=== PATIENT | male | born 1960 | race Caucasian/White ===

== ENCOUNTER 2019-08-11 13:13 | Observation (INO) | payer BC ==
[2019-08-11] MEDS ORDERED: MORPHINE 4 MG/ML SYR ONE (13:52)
[2019-08-11] MEDS ORDERED: ONDANSETRON 4 MG/2 ML VIAL ONE (13:53)
[2019-08-11] MEDS ORDERED: NA CHLORIDE 0.9% 1,000 ML ONE (13:53)
[2019-08-11 14:18] LABS: Absolute Lymphocytes (CBC) 1.3 K/uL (0.7-4.9); Basophils % 0.3 % (0-1.3); Hematocrit 46.2 % (39.6-49.0); MPV 8.5 fL (7.6-11.3); RBC Red Blood Cell Count 5.11 M/uL (4.33-5.43)
[2019-08-11 14:35] LABS: Albumin 3.8 g/dL (3.4-5.0); Bilirubin Direct 0.1 mg/dL (0-0.2); Bilirubin Total 0.7 mg/dL (0.2-1.0); Potassium 3.8 mmol/L (3.5-5.1); Protein, Total 6.9 g/dL (6.4-8.2)
--- NOTE | 2019-08-11 15:14 | RAD REPORT ---
EXAM DESCRIPTION: CT - Abdomen Pelvis W Contrast - 08/11/2019 3:02 pm CLINICAL HISTORY: Abdominal pain COMPARISON: 2016 TECHNIQUE: Computed axial tomography of the abdomen pelvis was obtained. 100 cc Isovue-300 was admin istered intravenously. Oral contrast was not requested which limits evaluation of bowel. All CT scans are performed using dose optimization technique as appropriate and may include automated exposure control or mA/KV adjustment according to patient size. FINDINGS: Calcified granuloma left lower lobe Fatty liver. 22 millimeter hepatic cyst Spleen, adrenal and kidneys appear unremarkable. Mild stranding adjacent to pancreatic head. Pancreas is normal size. Mild inhomogeneity pancreatic he ad. No pseudocyst There is no evidence of diverticulitis. Normal appendix IMPRESSION: Mild pancreatitis
[2019-08-11 15:24] LABS: Urine Blood NEGATIVE (NEG); Urine Glucose NEGATIVE (NEG); Urine Protein NEGATIVE (NEG)
--- NOTE | 2019-08-11 16:34 | ER ---
Nurse's Notes [facility] Name: Garland Maier Age: 59 yrs Sex: Male : 1960 Arrival Date: 08/11/2019 Time: 13:16 Bed 14 Private MD: Ramana Caldwell Diagnosis: Abdominal and pelvic pain;Acute pancreatitis Presentation: 08/11 13:20 Presenting complaint: Patient states: epigastric pain started a couple of days ago and sv then started having bilateral rib pain, generalized weakness, headache. Reports drinking on Wed and the pain started the next day, hx pancreatitis. Transition of care: patient was not received from another setting of care. Onset of symptoms was July 2019. Risk Assessment: Do you want to hurt yourself or someone else? Patient reports no desire to harm self or others. Care prior to arrival: None. 13:20 Method Of Arrival: Ambulatory sv 13:20 Acuity: MARYAM 3 sv 19:05 Initial Sepsis Screen: Does the patient meet any 2 criteria? No. Patient's initial sepsis screen is negative. Does the patient have a suspected source of infection? Yes: Acute abdominal pain. Triage Assessment: 19:05 General: Appears in no apparent distress. Behavior is calm, cooperative, appropriate wh for age. Historical: - Allergies: 13:21 No Known Allergies; sv - PMHx: 13:21 Hypertension; Pancreatitis; sv - PSHx: 13:21 None; sv - Immunization history:: Adult Immunizations up to date, Flu vaccine is not up to date. - Social history:: Smoking status: Patient/guardian denies using tobacco, Patient uses alcohol, occasionally. - Ebola Screening: : No symptoms or risks identified at this time. Screenin:00 Abuse screen: Denies threats or abuse. Denies injuries from another. Nutritional ch screening: No deficits noted. Tuberculosis screening: No symptoms or risk factors identified. Fall Risk None identified. Assessment: 14:00 Pain: Complains of pain in right upper quadrant, left upper quadrant and abdomen ch diffusely Pain currently is 5 out of 10 on a pain scale. Neuro: No deficits noted. Cardiovascular: No deficits noted. Respiratory: Airway is patent Respiratory effort is even, unlabored, Breath sounds are clear bilaterally. GI: Bowel sounds present X 4 quads. Abd is soft X 4 quads Abdomen is tender to palpation in right upper quadrant and left upper quadrant. Derm: Skin is intact, Skin is pink, warm \T\ dry. Musculoskeletal: No signs and/or symptoms reported regarding the musculoskeletal system. 14:48 Reassessment: Patient appears in no apparent distress at this time. Patient and/or ch family updated on plan of care and expected duration. Pain level reassessed. Patient is alert, oriented x 3, equal unlabored respirations, skin warm/dry/pink. Patient states feeling better. Patient states symptoms have improved. 16:00 Reassessment: Patient appears in no apparent distress at this time. No changes from ch previously documented assessment. Patient and/or family updated on plan of care and expected duration. Pain level reassessed. Patient is alert, oriented x 3, equal unlabored respirations, skin warm/dry/pink. 17:00 Reassessment: Patient appears in no apparent distress at this time. No changes from ch previously documented assessment. Patient and/or family updated on plan of care and expected duration. Pain level reassessed. Patient is alert, oriented x 3, equal unlabored respirations, skin warm/dry/pink. 18:00 Reassessment: pt verb understanding of wait to go upstairs. no s/s of distress. ch 19:13 Reassessment: Patient appears in no apparent distress at this time. Patient and/or ch family updated on plan of care and expected duration. Pain level reassessed. Patient is alert, oriented x 3, equal unlabored respirations, skin warm/dry/pink. Patient states feeling better. Patient states symptoms have improved. Vital Signs: 13:21 BP 146 / 89; Pulse 84; Resp 16; Pulse Ox 98% ; Weight 90.72 kg; Height 5 ft. 11 in. sv (180.34 cm); Pain 8/10; 14:48 BP 136 / 77; Pulse 62; Resp 14; Temp 99.1(O); Pulse Ox 96% on R/A; Pain 0/10; ch 16:00 BP 135 / 88; Pulse 80; Resp 18; Temp 99.1; Pulse Ox 98% on R/A; Pain 7/10; ch 18:53 BP 150 / 80; Pulse 76; Resp 14; Temp 98.5; Pulse Ox 97% on R/A; Pain 6/10; ch 13:21 Body Mass Index 27.89 (90.72 kg, 180.34 cm) sv ED Course: 13:16 Patient arrived in ED. ag5 13:16 Ramana Caldwell DO is Private Physician. ag5 13:20 Triage completed. sv 13:22 Donte Baltazar MD is Attending Physician. kdr 13:22 Arm band placed on. sv 13:50 Dea Simms, RN is Primary Nurse. ch 14:00 Patient has correct armband on for positive identification. Placed in gown. Bed in low ch position. Call light in reach. Side rails up X 1. Pulse ox on. NIBP on. Door closed. Noise minimized. Lights dimmed. Warm blanket given. 14:00 No provider procedures requiring assistance completed. ch 14:12 Basic Metabolic Panel Sent. ch 14:12 CBC with Diff Sent. ch 14:13 Creatinine for Radiology Sent. ch 14:13 Hepatic Function Sent. ch 14:13 Lipase Sent. ch 14:20 No apparent distress. Resting quietly. ch 14:20 Inserted saline lock: 20 gauge in left forearm, using aseptic technique. ch 15:00 Urine collected: clean catch specimen, clear, taisha colored. jp3 15:02 CT Abd/Pelvis - IV Contrast Only In Process Unspecified. EDMS 15:02 CT completed. Patient tolerated procedure well. Patient moved to CT via wheelchair. nj Patient moved back from CT. 16:32 Brian Leslie DO is Hospitalizing Provider. kdr 19:14 Report given to Judy. ch 19:41 Patient admitted, IV remains in place. wh Administered Medications: 14:12 Drug: NS 0.9% 1000 ml Route: IV; Rate: 1 bolus; Site: left forearm; ch 15:13 Follow up: IV Status: Completed infusion; IV Intake: 1000ml ch 14:12 Drug: morphine 4 mg Route: IVP; Site: left forearm; ch 15:13 Follow up: Response: No adverse reaction; Marked relief of symptoms ch 14:12 Drug: Zofran 4 mg Route: IVP; Site: left forearm; ch 15:13 Follow up: Response: No adverse reaction ch 18:16 Drug: morphine 2 mg Route: IVP; Site: left forearm; ch 18:16 Follow up: Response: No adverse reaction ch 19:40 Follow up: Response: No adverse reaction; Pain is decreased; RASS: Alert and Calm (0) Intake: 15:13 IV: 1000ml; Total: 1000ml. Outcome: 16:33 Decision to Hospitalize by Provider. kdr 19:40 Admitted to Tele accompanied by nurse, family with patient, via wheelchair, room 404, with chart, Report called to Jen Rizo RN 19:40 Condition: stable 19:40 Instructed on the need for admit. 19:41 Patient left the ED. Signatures: Dispatcher [employer] EDDea Mccracken RN RN ch Verde, Stephanie, RN RN Donte Baltazar MD MD kdr Jordan, Nathan nj Habalo, Winsy Osbaldo George jp3 Brittany George ag5 Corrections: (The following items were deleted from the chart) 13:22 13:20 Presenting complaint: Patient states: epigastric pain started a couple of days sv ago and then started having bilateral rib pain, generalized weakness, headache. sv
--- NOTE | 2019-08-11 16:34 | EDPHYS ---
Physician Documentation [facility] Name: Garland Maier Age: 59 yrs Sex: Male : 1960 Arrival Date: 08/11/2019 Time: 13:16 Bed 14 Private MD: Ramana Caldwell ED Physician Donte Baltazar HPI: 08/11 17:10 This 59 yrs old Male presents to ER via Ambulatory with complaints of kdr Abdominal Pain. 17:10 The patient presents with abdominal pain in the epigastric area, in the upper abdomen. kdr Onset: The symptoms/episode began/occurred gradually, 3 day(s) ago. The symptoms do not radiate. Associated signs and symptoms: Pertinent positives: nausea and vomiting, Pertinent negatives: anorexia, blood in stools, chest pain, diarrhea, dysuria, fever, headache, hematuria, palpitations, shortness of breath, testicular pain, vomiting, vomiting blood. The symptoms are described as achy, crampy, waxing/waning. Modifying factors: The symptoms are alleviated by nothing, the symptoms are aggravated by coughing, breathing deeply, movement, pressure, touching the area. Severity of pain: At its worst the pain was severe incapacitating just prior to arrival, in the emergency department the pain is unchanged. The patient has experienced similar episodes in the past, a few times. The patient has not recently seen a physician, Was admitted for pancreatitis last ED visit. Historical: - Allergies: 13:21 No Known Allergies; sv - PMHx: 13:21 Hypertension; Pancreatitis; sv - PSHx: 13:21 None; sv - Immunization history:: Adult Immunizations up to date, Flu vaccine is not up to date. - Social history:: Smoking status: Patient/guardian denies using tobacco, Patient uses alcohol, occasionally. - Ebola Screening: : No symptoms or risks identified at this time. ROS: 17:10 Constitutional: Negative for fever, chills, and weight loss, Eyes: Negative for injury, kdr pain, redness, and discharge, ENT: Negative for injury, pain, and discharge, Neck: Negative for injury, pain, and swelling, Cardiovascular: Negative for chest pain, palpitations, and edema, Respiratory: Negative for shortness of breath, cough, wheezing, and pleuritic chest pain, Back: Negative for injury and pain, : Negative for injury, bleeding, discharge, and swelling, MS/Extremity: Negative for injury and deformity, Skin: Negative for injury, rash, and discoloration, Neuro: Negative for headache, weakness, numbness, tingling, and seizure activity. Psych: Negative for depression, anxiety, suicide ideation, homicidal ideation, and hallucinations, Allergy/Immunology: Negative for hives, rash, and allergies, Endocrine: Negative for neck swelling, polydipsia, polyuria, polyphagia, and marked weight changes, Hematologic/Lymphatic: Negative for swollen nodes, abnormal bleeding, and unusual bruising. 17:10 Abdomen/GI: Positive for abdominal pain, nausea and vomiting, Negative for diarrhea, constipation, abdominal distension, anorexia, dysphagia, hematemesis, black/tarry stool, rectal pain, rectal bleeding, bowel incontinence. Exam: 17:10 Constitutional: This is a well developed, well nourished patient who is awake, alert, kdr and in no acute distress. Head/Face: Normocephalic, atraumatic. Eyes: Pupils equal round and reactive to light, extra-ocular motions intact. Lids and lashes normal. Conjunctiva and sclera are non-icteric and not injected. Cornea within normal limits. Periorbital areas with no swelling, redness, or edema. Neck: Trachea midline, no thyromegaly or masses palpated, and no cervical lymphadenopathy. Supple, full range of motion without nuchal rigidity, or vertebral point tenderness. No Meningismus. Chest/axilla: Normal chest wall appearance and motion. Nontender with no deformity. No lesions are appreciated. Cardiovascular: Regular rate and rhythm with a normal S1 and S2. No gallops, murmurs, or rubs. Normal PMI, no JVD. No pulse deficits. Respiratory: Lungs have equal breath sounds bilaterally, clear to auscultation and percussion. No rales, rhonchi or wheezes noted. No increased work of breathing, no retractions or nasal flaring. Back: No spinal tenderness. No costovertebral tenderness. Full range of motion. Skin: Warm, dry with normal turgor. Normal color with no rashes, no lesions, and no evidence of cellulitis. MS/ Extremity: Pulses equal, no cyanosis. Neurovascular intact. Full, normal range of motion. Neuro: Awake and alert, GCS 15, oriented to person, place, time, and situation. Cranial nerves II-XII grossly intact. Motor strength 5/5 in all extremities. Sensory grossly intact. Cerebellar exam normal. Normal gait. Psych: Awake, alert, with orientation to person, place and time. Behavior, mood, and affect are within normal limits. 17:10 Abdomen/GI: Inspection: abdomen appears normal, Bowel sounds: active, diminished, in all quadrants, Palpation: soft, mild abdominal tenderness, in the epigastric area, right upper quadrant and left upper quadrant, mass, is not appreciated, rebound tenderness, is not appreciated. Vital Signs: 13:21 BP 146 / 89; Pulse 84; Resp 16; Pulse Ox 98% ; Weight 90.72 kg; Height 5 ft. 11 in. sv (180.34 cm); Pain 8/10; 14:48 BP 136 / 77; Pulse 62; Resp 14; Temp 99.1(O); Pulse Ox 96% on R/A; Pain 0/10; ch 16:00 BP 135 / 88; Pulse 80; Resp 18; Temp 99.1; Pulse Ox 98% on R/A; Pain 7/10; ch 18:53 BP 150 / 80; Pulse 76; Resp 14; Temp 98.5; Pulse Ox 97% on R/A; Pain 6/10; ch 13:21 Body Mass Index 27.89 (90.72 kg, 180.34 cm) sv MDM: 16:33 Patient medically screened. kdr 17:10 Data reviewed: vital signs, nurses notes, lab test result(s), radiologic studies. kdr Counseling: I had a detailed discussion with the patient and/or guardian regarding: the historical points, exam findings, and any diagnostic results supporting the discharge/admit diagnosis, lab results, radiology results. 08/11 13:56 Order name: Basic Metabolic Panel; Complete Time: 14:56 kdr 08/11 13:56 Order name: CBC with Diff; Complete Time: 14:56 kdr 08/11 13:56 Order name: Creatinine for Radiology; Complete Time: 14:56 kdr 08/11 13:56 Order name: Hepatic Function; Complete Time: 14:56 kdr 08/11 13:56 Order name: Lipase; Complete Time: 14:56 kdr 08/11 15:11 Order name: Urine Dipstick--Ancillary (enter results); Complete Time: 15:36 eb 08/11 13:56 Order name: IV Saline Lock; Complete Time: 14:13 [facility] 08/11 13:56 Order name: Labs collected and sent; Complete Time: 14:13 [facility] 08/11 13:56 Order name: CT Abd/Pelvis - IV Contrast Only; Complete Time: 15:36 [facility] 08/11 16:53 Order name: Triglycerides Level EDMS Administered Medications: 14:12 Drug: NS 0.9% 1000 ml Route: IV; Rate: 1 bolus; Site: left forearm; ch 15:13 Follow up: IV Status: Completed infusion; IV Intake: 1000ml ch 14:12 Drug: morphine 4 mg Route: IVP; Site: left forearm; ch 15:13 Follow up: Response: No adverse reaction; Marked relief of symptoms ch 14:12 Drug: Zofran 4 mg Route: IVP; Site: left forearm; ch 15:13 Follow up: Response: No adverse reaction ch 18:16 Drug: morphine 2 mg Route: IVP; Site: left forearm; ch 18:16 Follow up: Response: No adverse reaction ch 19:40 Follow up: Response: No adverse reaction; Pain is decreased; RASS: Alert and Calm (0) Disposition: 08/11/19 16:33 Hospitalization ordered by Brian Leslie for Observation. Preliminary diagnosis are Abdominal and pelvic pain, Acute pancreatitis. - Bed requested for Telemetry/MedSurg (observation). - Status is Observation. - Condition is Fair. - Problem is an acute exacerbation. - Symptoms have improved. UTI on Admission? No Signatures: Dispatcher [employer] EDMS Dea Simms RN RN Aury Bains RN RN Donte Baltazar MD MD [facility] Anthony Mcduffie Alena Miller Corrections: (The following items were deleted from the chart) 17:48 16:33 Hospitalization Ordered by Brian Leslie DO for Observation. Preliminary diagnosis is Abdominal and pelvic pain; Acute pancreatitis. Bed requested for Telemetry/MedSurg (observation). Status is Observation. Condition is Fair. Problem is an acute exacerbation. Symptoms have improved. UTI on Admission? No. kdr 19:41 17:48 08/11/2019 16:33 Hospitalization Ordered by Brian Leslie DO for Observation. Preliminary diagnosis is Abdominal and pelvic pain; Acute pancreatitis. Bed requested for Telemetry/MedSurg (observation). Status is Observation. Condition is Fair. Problem is an acute exacerbation. Symptoms have improved. UTI on Admission? No. eb
--- NOTE | 2019-08-11 17:15 | P.HP ---
Certification for Inpatient Patient admitted to: Observation With expected LOS: <2 Midnights Patient will require the following post-hospital care: None Practitioner: I am a practitioner with admitting privileges, knowledge of patient current condition, hospital course, and medical plan of care. Services: Services provided to patient in accordance with Admission requirements found in Title 42 Section 412.3 of the Code of Federal Regulations Patient History Date of Service: 08/11/19 Primary Care Provider: Dr. Ramana Caldwell Reason for admission: abdominal pain History of Present Illness: 59-year-old male presented to the emergency room with epigastric abdominal pain. Patient with history of hypertension and pancreatitis. Patient reported abdominal pain mainly to the upper quadrant starting yesterday. Pain persisted and got worse today. He rated the pain about a 10/10. Pain would only radiate to the upper abdomen. He denied any fever, chills. No significant nausea noted with his history of pancreatitis he came to the ER for further evaluation. Patient denied increase alcohol intake. present reports patient has a poor diet. In the ER patient evaluated. White count 14.0. Hemoglobin 15.8. Platelet count 213. Sodium 141, potassium 3.8. GFR of 86. Glucose 126. Total bilirubin/ AST/ALT unremarkable. Urinalysis unremarkable. Lipase 242. CT revealed mild pancreatitis. CT also showed a 22 mm hepatic cyst and fatty liver. Patient required multiple doses of pain medication. Patient was admitted for further evaluation. When I saw the patient ER, pain improved with medication. at bedside. Patient denied excessive alcohol use. Patient with prior episode of pancreatitis about 2 years ago. At that time an MRCP was negative. Etiology at that time was likely related to alcohol verses diet. Patient is not followed up with GI since that time. Patient has hypertension and only takes lisinopril. Allergies No Known Allergies Allergy (Unverified 06/18/16 15:56) Home medications list reviewed: Yes Home Medications: Lisinopril [Prinivil*] 10 mg PO DAILY #30 tab 10/18/17 Pantoprazole [Protonix Tab*] 40 mg PO DAILYAC #30 tab 10/18/17 traMADol HCL [Ultram*] 50 mg PO Q6H PRN #20 tab 10/18/17 - Past Medical/Surgical History Diabetic: No -: Hypertension -: GERD -: 22 mm hepatic cyst -: Fatty liver Past Surgical History: Patient denies surgical history Psychosocial/ Personal History: Patient is - Family History Father -: Cancer (Lymphoma) Notes: lymphoma Mother -: Lung disease, Cancer (Lung and brain cancer) Brother -: Cancer (Prostate cancer) - Social History Smoking Status: Never smoker Alcohol use: Yes CD- Drugs: No Caffeine use: No Place of Residence: Home Review of Systems General: As per HPI Eyes: Unremarkable ENT: Unremarkable Respiratory: Unremarkable Cardiovascular: Unremarkable Gastrointestinal: Nausea, Abdominal Pain, As per HPI Genitourinary: Unremarkable Musculoskeletal: Unremarkable Integumentary: Unremarkable Neurological: Unremarkable Lymphatics: Unremarkable Physical Examination - Physical Exam General: Alert, In no apparent distress, Oriented x3, Cooperative HEENT: Atraumatic, Normocephalic, PERRLA, Other (Dry mucous membranes) Neck: Supple, No Thyromegaly Respiratory: Clear to auscultation bilaterally, Normal air movement Cardiovascular: Normal pulses, Regular rate/rhythm Gastrointestinal: Normal bowel sounds, Soft and benign, Non-distended, No masses , No rebound, No guarding, Tenderness (Pain to the upper quadrant) Musculoskeletal: No erythema, No tenderness, No warmth Integumentary: No tenderness/swelling, No erythema, No warmth, No cyanosis Neurological: Normal speech, Normal strength at 5/5 x4 extr, Normal tone, Normal affect - Studies Laboratory Data (last 24 hrs) 08/11/19 14:00: Creatinine 0.90 08/11/19 14:00: WBC 14.3 H, Hgb 15.8, Hct 46.2, Plt Count 213 08/11/19 14:00: Sodium 141, Potassium 3.8, BUN 10, Creatinine 0.90, Glucose 126 H, Total Bilirubin 0.7, AST 10 L, ALT 23, Alkaline Phosphatase 30 L, Lipase 242 Assessment and Plan - Plan Impression: Upper abdominal pain secondary to recurrent idiopathic pancreatitis Hypertension Fatty liver Hepatic cyst Plan: Upper abdominal pain secondary to recurrent idiopathic pancreatitis: Patient will be admitted for further evaluation and treatment. Will continue IV fluids , IV pain control. Will keep the patient NPO at this time. Once pain significantly improved then will initiate clear liquids then advance as tolerated. Will continue to monitor lab closely. Will obtain triglyceride level, urine drug screen and alcohol level. Patient reports no significant alcohol use. Patient with fatty liver. Etiology unknown but will need to rule out causes like hypertriglyceridemia, alcohol or medication. Patient takes lisinopril which has a less than 10% side effect for pancreatitis. Will need to consider changing medication at discharge. I will turn the service over to hospitalist covering the weekend. Hospitalist will continue his care. Will provide DVT prophylaxis-Lovenox. Will recommend GI evaluation as an outpatient to further address. Anticipate discharge in the next 48 hr with clinical improvement. Hypertension: Will provide hydralazine IV as needed. Will need to monitor this closely. Will consider changing lisinopril to another medication as there is a less than 10% side effect for pancreatitis. Fatty liver: Check fasting lipid panel. Will recommend GI evaluation as an outpatient. Hepatic cyst: This appears unremarkable. Recommend GI evaluation as an outpatient. Discharge Plan: Home Plan to discharge in: 48 Hours - Advance Directives Does patient have a Living Will: No Does patient have a Durable POA for Healthcare: No - Code Status/Comfort Care Code Status Assessed: Yes (Patient is full code.) Time Spent Managing Pts Care (In Minutes): 55
[2019-08-11] MEDS ORDERED: MORPHINE 2 MG/ML SYR ONE (18:05)
[2019-08-11] MEDS ORDERED: HYDRALAZINE HCL 20 MG/ML VIAL IV PRN (19:28)
[2019-08-11] MEDS ORDERED: ACETAMINOPHEN 650MG/RECT SUPP RECT PRN (19:28)
[2019-08-11] MEDS ORDERED: ONDANSETRON 4 MG/2 ML VIAL IV PRN (19:28)
[2019-08-11 20:18] VITALS: BMI 27.8
[2019-08-11] MEDS: NA CHLORIDE 0.9% 1,000 ML IV SCH (21:09)
[2019-08-11] MEDS: FAMOTIDINE 20 MG/2 ML VIAL IV SCH (21:14)
[2019-08-11] MEDS: ACETAMINOPHEN 500 MG TAB PO PRN (21:17)
[2019-08-11] MEDS: MORPHINE 2 MG/ML SYR IV PRN (23:26)
[2019-08-11 23:36] LABS: Barbiturates NEGATIVE (NEGATIVE); Benzodiazepines NEGATIVE (NEGATIVE); Cocaine NEGATIVE (NEGATIVE); METHAMPHETAM NEGATIVE (NEGATIVE); Methadone NEGATIVE (NEGATIVE); Opiates POSITIVE (NEGATIVE); Phencyclidine NEGATIVE (NEGATIVE); THC Cannibis NEGATIVE (NEGATIVE)
[2019-08-12 03:14] LABS: Urine Appearance CLEAR; Urine Bilirubin NEGATIVE (NEG); Urine Blood NEGATIVE (NEG); Urine Color YELLOW; Urine Glucose NEGATIVE (NEG); Urine Protein NEGATIVE (NEG); Urine Specific Gravity >=1.030 (1.005-1.030)
[2019-08-12 03:25] LABS: Urine Microscopic Reflex NO UMIC
[2019-08-12] MEDS: MORPHINE 2 MG/ML SYR IV PRN ×3 (04:27→14:59)
[2019-08-12] MEDS: NA CHLORIDE 0.9% 1,000 ML IV SCH ×4 (04:28→19:28)
[2019-08-12 06:37] LABS: Absolute Lymphocytes (CBC) 1.2 K/uL (0.7-4.9); Basophils % 0.2 % (0-1.3); Hematocrit 39.2 % (39.6-49.0); MPV 8.3 fL (7.6-11.3); RBC Red Blood Cell Count 4.39 M/uL (4.33-5.43)
[2019-08-12 07:09] LABS: Albumin 3.3 g/dL (3.4-5.0); Bilirubin Total 0.7 mg/dL (0.2-1.0); Magnesium 2.1 mg/dL (1.8-2.4); Potassium 3.9 mmol/L (3.5-5.1); Protein, Total 6.1 g/dL (6.4-8.2); Thyroid Stimulating Hormone 0.766 uIU/mL (0.360-3.740)
[2019-08-12] MEDS: ENOXAPARIN 40 MG/0.4 ML SQ SCH (08:43)
[2019-08-12] MEDS: FAMOTIDINE 20 MG/2 ML VIAL IV SCH ×2 (08:44→21:23)
[2019-08-12] MEDS ORDERED: INFLUENZA VACCINE (for 3y+) 0.5 ML DOSE IMVAC ONE (13:00)
[2019-08-12] MEDS ORDERED: POTASSIUM 25 MEQ EFFERV TAB PO ONE (13:00)
--- NOTE | 2019-08-12 13:41 | P.PN ---
Subjective Date of Service: 08/12/19 Primary Care Provider: Dr. Ramana Caldwell Chief Complaint: abdominal pain Patient states his abdominal pain has improved. He denies any nausea. He denies any diarrhea or constipation. He has been afebrile. He admitted to Physical Examination - Vital Signs Temperature: 97.6 F Blood Pressure: 158/76 Pulse: 63 Respirations: 16 Pulse Ox (%): 98 - Physical Exam General: Alert, In no apparent distress, Oriented x3 HEENT: Mucous membr. moist/pink Neck: Supple, JVD not distended Respiratory: Clear to auscultation bilaterally, Normal air movement Cardiovascular: No edema, Normal pulses, Regular rate/rhythm, Normal S1 S2, No murmurs Gastrointestinal: Normal bowel sounds, Soft and benign, Other (Mild epigastric tenderness on deep palpation) Musculoskeletal: No swelling, No erythema Integumentary: No rashes, No erythema Neurological: Normal speech, Normal strength at 5/5 x4 extr, Cranial nerves 3- 12 intact - Studies Laboratory Data (last 24 hrs) 08/11/19 14:00: Triglycerides 107 08/11/19 14:00: Creatinine 0.90 08/11/19 14:00: WBC 14.3 H, Hgb 15.8, Hct 46.2, Plt Count 213 08/11/19 14:00: Sodium 141, Potassium 3.8, BUN 10, Creatinine 0.90, Glucose 126 H, Total Bilirubin 0.7, AST 10 L, ALT 23, Alkaline Phosphatase 30 L, Lipase 242 Assessment And Plan - Current Problems (Diagnosis) (1) Hypertension Current Visit: Yes Status: Acute (2) Pancreatitis Current Visit: No Status: Resolved Qualifiers: Chronicity: acute Pancreatitis type: alcohol induced Acute pancreatitis complication: no infection or necrosis Qualified Code(s): K85.20 - Alcohol induced acute pancreatitis without necrosis or infection (3) Fatty liver Current Visit: Yes Status: Acute - Plan Patient symptoms have improved. Start clear liquid diet and advance as tolerated Serial abdominal examination Continue supportive measures with IV hydration, IV anti-emetics and IV opioids p.r.n. for pain. Do serial lipase Alcohol cessation adviced Lisinopril changed to amlodipine for blood pressure.
[2019-08-13 02:04] VITALS: O2SAT 96
[2019-08-13] MEDS: ACETAMINOPHEN 500 MG TAB PO PRN (04:06)
[2019-08-13] MEDS: NA CHLORIDE 0.9% 1,000 ML IV SCH (04:06)
[2019-08-13 06:06] LABS: Absolute Lymphocytes (CBC) 1.5 K/uL (0.7-4.9); Basophils % 0.3 % (0-1.3); Lymphocytes % 17.7 % (15.3-44.8); MPV 8.3 fL (7.6-11.3); RBC Red Blood Cell Count 4.45 M/uL (4.33-5.43)
[2019-08-13 06:25] LABS: Potassium 4.2 mmol/L (3.5-5.1)
[2019-08-13] MEDS: FAMOTIDINE 20 MG/2 ML VIAL IV SCH (08:17)
[2019-08-13] MEDS: ENOXAPARIN 40 MG/0.4 ML SQ SCH (08:17)
[2019-08-13 08:19] VITALS: BP 141/80
[2019-08-13] MEDS ORDERED: AMLODIPINE 5 MG TAB PO SCH (09:00)
--- NOTE | 2019-08-13 09:16 | P.DS ---
Admission Date: 08/11/19 Discharge Date: 08/13/19 Primary Care Provider: Dr. Ramana Caldwell Disposition: ROUTINE DISCHARGE Discharge Condition: GOOD Reason for Admission: abdominal pain Consultations: None - Problems (1) Pancreatitis Status: Resolved Qualifiers: Chronicity: acute Pancreatitis type: alcohol induced Acute pancreatitis complication: no infection or necrosis Qualified Code(s): K85.20 - Alcohol induced acute pancreatitis without necrosis or infection (2) Hypertension Status: Acute (3) Fatty liver Status: Acute Brief History of Present Illness: 59-year-old gentleman with a history of hypertension presented to emergency department with a complaint of epigastric pain of sudden onset, occurred on the morning of presentation. Patient reports drinking beer the night before. In the ED, CT abdomen and pelvis suggested the presence of mild pancreatitis. Lipase level was within normal limit. His pain was uncontrolled in the ED. He was hospitalized further management of acute pancreatitis. Hospital Course: He was treated supportively with IV hydration, IV opioids and anti-emetics and kept NPO. His abdominal pain improved the next day. Patient was started on clear liquid diet and later tolerated diet advancement to solid diet. Patient has clinically improved and deemed stable for discharge. Of note his lisinopril for hypertension was changed to amlodipine given the fact that acute pancreatitis can be a side effect of lisinopril. Vital Signs/Physical Exam: Temp Pulse Resp BP Pulse Ox 98.9 F 68 16 141/80 H 97 08/13/19 04:00 08/13/19 08:17 08/13/19 04:00 08/13/19 08:17 08/13/19 04:00 General: Alert, In no apparent distress, Oriented x3 HEENT: Mucous membr. moist/pink Neck: Supple, JVD not distended Respiratory: Clear to auscultation bilaterally, Normal air movement Cardiovascular: No edema, Regular rate/rhythm, Normal S1 S2, No murmurs Capillary refill: <2 Seconds Gastrointestinal: Normal bowel sounds, Soft and benign, Non-distended, No tenderness Musculoskeletal: No swelling, No erythema Integumentary: No rashes, No tenderness/swelling Neurological: Normal speech, Normal strength at 5/5 x4 extr Laboratory Data at Discharge: WBC 8.4 K/uL (4.3-10.9) D 08/13/19 05:41 Hgb 14.0 g/dL (13.6-17.9) 08/13/19 05:41 Hct 40.0 % (39.6-49.0) 08/13/19 05:41 Plt Count 174 K/uL (152-406) 08/13/19 05:41 Sodium 141 mmol/L (136-145) 08/13/19 05:41 Potassium 4.2 mmol/L (3.5-5.1) 08/13/19 05:41 BUN 9 mg/dL (7-18) 08/13/19 05:41 Creatinine 0.90 mg/dL (0.55-1.3) 08/13/19 05:41 Glucose 107 mg/dL (74-106) H 08/13/19 05:41 Magnesium 2.1 mg/dL (1.8-2.4) 08/12/19 06:17 Total Bilirubin 0.7 mg/dL (0.2-1.0) 08/12/19 06:17 AST 6 U/L (15-37) L 08/12/19 06:17 ALT 18 U/L (12-78) 08/12/19 06:17 Alkaline Phosphatase 26 U/L (45-117) L 08/12/19 06:17 Triglycerides 92 mg/dL (<150) 08/12/19 06:17 Cholesterol 142 mg/dL (<200) 08/12/19 06:17 HDL Cholesterol 46 mg/dL (40-60) 08/12/19 06:17 Cholesterol/HDL Ratio 3.09 08/12/19 06:17 Lipase 133 U/L (73-393) 08/13/19 05:41 Home Medications: Amlodipine [Norvasc*] 5 mg PO DAILY 30 Days #30 tab 08/13/19 New Medications: Amlodipine [Norvasc*] 5 mg PO DAILY 30 Days #30 tab Patient Discharge Instructions: Follow up with PCP within 1 week. Diet: Low sodium Activity: Ad christine Followup: Ramana Caldwell DO [Primary Care Provider] - 1 Week (call to schedule an appointment) Time spent managing pt's care (in minutes): 28
[2019-08-13 10:20] VITALS: TEMP 97.7
--- OUTSIDE RECORDS SUMMARY | 2019-08-27 11:30 | XMS REPORT ---
:1960 Author Organization [employer] Care Team Providers Name Role Phone Caldwell, [facility] Provider Role Unavailable Allergies, Adverse Reactions, Alerts Substance Reaction Event Type N.K.D.A. Info Not Available Non Drug Allergy Problems Problem Type Condition Code Onset Dates Condition Status Assessment Fatty liver K76.0 Active Assessment Benign essential HTN I10 Active Assessment GERD without esophagitis K21.9 Active Assessment Prediabetes R73.03 Active Problem GERD without esophagitis K21.9 Active Problem Other acute pancreatitis without K85.80 Active infection or necrosis Problem Mixed hyperlipidemia E78.2 Active Assessment Mixed hyperlipidemia E78.2 Active Problem Benign essential HTN I10 Active Problem Fatty liver K76.0 Active Medications Medication Code System Code Instructions Start Date End Date Status Dosage Lisinopril [facility] [place] 02110995421 10 MG Orally Once Active 1 tablet a day Lisinopril [facility] [place] 92612831518 10 MG Orally Once Active 1 tablet a day Protonix [facility] [place] [id number] 40 MG Orally Once Active 1 tablet a day Results No Known Results Summary Purpose [employer]Clinical[employer] Submission
== END 2019-08-13 10:19 | disposition home or self-care (01) ==
LOC: ER 13:13 → ERHOLD 17:05 → 4TH 19:18
PROVIDERS: ADMIT Family Medicine; ATTEND Internal Medicine
DX: K85.20 Alcohol induced acute pancreatitis without necrosis or infection (principal); I10 Essential (primary) hypertension; K21.9 Gastro-esophageal reflux disease without esophagitis; K76.0 Fatty (change of) liver, not elsewhere classified; K76.89 Other specified diseases of liver; Z23 Encounter for immunization
CPT/HCPCS: 96361; 87040 ×2; 85025 ×3; 80048 ×2; 36415 ×2; 80320; 83735; 84478; 80061; 80076; 80307 ×8; 84443; 81003 ×2; 84439; 83690 ×2; 80053; 74177; 90471; 96375; 96374; 99285; Q9967; J0360; Q2035; J1650; J2270 ×5; J7030 ×5; J2405; G0378 ×4